=== PATIENT | female | born 1975 | race Caucasian/White ===

== ENCOUNTER → 2017-03-19 | Outpatient (CLI) | payer OTHER ==
--- NOTE | 2017-03-19 16:13 | RAD ---
DATE: 03/19/2017 EXAM: DIGITAL DIAGNOSTIC BILATERAL, BREAST RIGHT HISTORY: Visible indentation of the right breast particularly on the lateral side, breast mass COMPARISON: None available This study was interpreted with the benefit of Computerized Aided Detection (CAD). FINDINGS: Breast Density: DENSE The breast Parenchyma is dense, which could reduce the sensitivity of mammography. Breast parenchyma level density D.. There are no dominant suspicious masses, suspicious microcalcifications or evidence of architectural distortion. Targeted ultrasound the right breast demonstrates no definite evidence of mass from 3 to 6:00 position and at 9:00 position. Few minimally prominent ducts identified in this region. IMPRESSION: Benign findings. Given extremely dense breast which limits sensitivity of the mammogram, breast MRI can be considered. BI-RADS CATEGORY: 2 BENIGN FINDING RECOMMENDED FOLLOW-UP: 12M 12 MONTH FOLLOW-UP. Given extremely dense breast which limits sensitivity of the mammogram, breast MRI can be considered. PQRS compliance statement: Patient information was entered into a reminder system with a target due date 03/19/2018 for the next mammogram. Mammography is a sensitive method for finding small breast cancers, but it does not detect them all and is not a substitute for careful clinical examination. A negative mammogram does not negate a clinically suspicious finding and should not result in delay in biopsying a clinically suspicious abnormality. "Our facility is accredited by the [employer] Mammography Program."
== END | disposition home or self-care (01) ==
LOC: MAMMO 13:35
PROVIDERS: ATTEND Nurse Practitioner Family
DX: N63 Unspecified lump in breast (principal)
CPT/HCPCS: 76641; G0204; 77066